=== PATIENT | female | born 1955 | race Two or more races ===

== ENCOUNTER 2016-11-07 19:14 | Emergency (ER) | payer MEDICAID, OTHER ==
[~2016-11-07] VITALS: Ht 157.5 cm; Wt 47.2 kg
[2016-11-07 19:23] VITALS: BP 137/66
== END 2016-11-07 19:36 | disposition home or self-care (01) ==
LOC: ER 19:18
DX: K08.89 Other specified disorders of teeth and supporting structures (principal); F41.9 Anxiety disorder, unspecified
CPT/HCPCS: 99283; A4606; Z7610

== ENCOUNTER 2016-12-12 19:58 | Emergency (ER) | payer MEDICAID ==
[~2016-12-12] VITALS: Ht 157.5 cm; Wt 46.7 kg
[2016-12-12 20:48] VITALS: BP 127/76
== END 2016-12-12 21:33 | disposition home or self-care (01) ==
LOC: ER 19:58
DX: K08.89 Other specified disorders of teeth and supporting structures (principal); F41.9 Anxiety disorder, unspecified
CPT/HCPCS: 99283; A4606; Z7610